=== PATIENT | female | born 1955 | race Caucasian/White ===

== ENCOUNTER 2019-05-10 21:00 | Inpatient (IN) | payer MEDICAID ==
[~2019-05-10] VITALS: Ht 160 cm; Wt 64.0 kg
[2019-05-10 21:39] VITALS: Ht 160 cm; Wt 64.0 kg
--- NOTE | 2019-05-10 21:46 | NUR ---
PATIENT AAOX4 BIB [facility] WITH C/O HBP, DIZZINESS, NAUSEA AND GENERAL MALAISE. PT IS VISITING FROM [place] AND WALKED AROUND [facility] BEFORE SYMPTOMS BEGAN. PT HAS EXTENSIVE CARDIC HX WITH HAVING AN SC, STENT PLACEMENT, AND HTN. PT BREATHING E/U, SKIN WARM DRY AND INTACT. 1+ EDEMA NOTED TO LLL, PT STS THIS IS A NEW SYMPTOM. PT PLACED ON ALL MONITORS FOR FURTHER OBSERVATION. WILL CONTINUE TO MONITOR.
--- NOTE | 2019-05-10 21:57 | NUR ---
MEDICATED PER MD ORDERS
[2019-05-10 22:16] LABS: BASOPHIL % 0.5 % (0-2); PLATELET COUNT 254 x10^3mcL (130-400)
[2019-05-10 22:18] LABS: RED CELL DISTRIBUTION WIDTH 15.1 % (11.5-14.5)
--- NOTE | 2019-05-10 22:40 | NUR ---
ASSISTED PATIENT TO BATHROOM TO PROVIDE URINE SAMPLE. GAIT UNSTEADY. PT BACK ON GURNEY AND PLACED BACK ON ALL MONITORS FOR FURTHER OBSERVATION. WILL CONTINUE TO MONITOR.
[2019-05-10 22:53] LABS: CALCIUM 8.8 mg/dL (8.5-10.1); CARBON DIOXIDE 28.3 mmol/L (21-32); CHLORIDE SERUM 107 mmol/L (98-107); CREATININE SERUM 0.9 mg/dL (0.6-1.0); GFR1 > 60 mL/min; GLUCOSE SERUM 164 mg/dL (74-106); POTASSIUM SERUM 4.1 mmol/L (3.5-5.1); SODIUM SERUM 143 mmol/L (136-145)
[2019-05-10 23:07] LABS: ALKALINE PHOSPHATASE 97 U/L (46-116); ALT/SGPT 37 U/L (14-59); AST/SGOT 29 U/L (15-37); BILIRUBIN TOTAL 0.18 mg/dL (0.20-1.00); FREE T4 0.94 ng/dL (0.76-1.46)
[2019-05-10 23:09] LABS: ALBUMIN 2.3 g/dL (3.4-5.0); TOTAL PROTEIN, SERUM 5.7 g/dL (6.4-8.2)
[2019-05-10 23:23] LABS: microscopic required? YES; urine erythrocyte 2+ (NEGATIVE)
--- NOTE | 2019-05-10 23:26 | NUR ---
PATIENT LYING ON GURNEY WITH EYES CLOSED. EASILY AROUSABLE. WILL CONTINUE TO MONITOR. VSS.
--- NOTE | 2019-05-10 23:52 | NUR ---
PT LAYING IN GURNEY WITH EYES CLOSED. GOOD CHEST RISE AND FALL NOTED. NAD.
--- NOTE | 2019-05-10 23:57 | NUR ---
DR SUN AT BEDSIDE TO REEVALUTE PT.
[2019-05-11] VITALS (7 sets, daily range): BP systolic 107–171; BP diastolic 46–90
--- NOTE | 2019-05-11 00:35 | NUR ---
MEDICATED PER MD ORDERS
[2019-05-11] MEDS ORDERED: ALIGN4 M1 PO (00:50)
[2019-05-11] MEDS ORDERED: CIPRO250 MG PO (00:50)
[2019-05-11] MEDS ORDERED: LIPITOR40 MG PO (00:51)
[2019-05-11] MEDS ORDERED: PLA75 PO (00:51)
[2019-05-11] MEDS ORDERED: IBUPROFEN400 MG PO (00:53)
[2019-05-11] MEDS ORDERED: NATURAL IRON65 MG PO (00:55)
[2019-05-11] MEDS ORDERED: LOSARTAN POTASS1 TA6 PO (00:56)
[2019-05-11] MEDS ORDERED: TOPROL XL25 MG PO (00:56)
[2019-05-11] MEDS ORDERED: TYMLOS1.56 ML SQ (00:57)
[2019-05-11] MEDS ORDERED: ASPIRIN ADULT L81 M5 PO (00:57)
[2019-05-11] MEDS ORDERED: NOVOLOG FLEX100 U/M1 SQ (00:58)
[2019-05-11] MEDS ORDERED: INTRINSI B12-F1 EACH (00:58)
[2019-05-11] MEDS ORDERED: LOVAZA1 G1 (00:58)
[2019-05-11] MEDS ORDERED: FENOFIBRATE145 M1 PO (00:59)
[2019-05-11] MEDS ORDERED: AMLODIPINE BESY10 M2 PO (00:59)
[2019-05-11] MEDS ORDERED: GABAPENTIN800 M1 PO (01:00)
[2019-05-11] MEDS ORDERED: ISOSORBIDE MONO60 MG PO (01:00)
[2019-05-11] MEDS ORDERED: METFORMIN HCL1000 MG PO (01:01)
[2019-05-11] MEDS ORDERED: MECLIZINE HYDRO25 M1 PO (01:01)
[2019-05-11] MEDS ORDERED: BRILINTA90 M1 PO (01:02)
[2019-05-11] MEDS ORDERED: TRESIBA FL100 UNIT/1 SQ (01:03)
[2019-05-11] MEDS ORDERED: VICTOZA 3-0.6 MG/0.1 SQ (01:03)
[2019-05-11] MEDS ORDERED: FLOVENT DI100 MCG/A1 INH (01:04)
[2019-05-11] MEDS ORDERED: ALPRAZOLAM0.25 MG PO (01:04)
[2019-05-11] MEDS ORDERED: TRAMADOL HCL50 MG PO (01:05)
[2019-05-11] MEDS ORDERED: EPZICOM1 TAB (01:05)
--- NOTE | 2019-05-11 01:18 | NUR ---
RECEIVED FROM ED.PUT IN ROOM 237 B AND MADE COMFORTABLE.TELE 22 ASSIGNED,SR.NO CHEST PAIN.WILL ADMIT PATIENT,SAYS SHE IS COLD,GIVEN WARM BLANKET.WANTING TO EAT,NO DIET ORDER YET,WILL CHECK WITH DR ARGUETA.CALL LIGHT IN REACH.
--- NOTE | 2019-05-11 02:09 | NUR ---
PATIENT ADMISSION HX AND ASSESSMENT DONE.PATIENT SPEAKS ARABIC WELL.MED HX OF DC,STENT,HTN,NEUROPATHY,FIBROMYALGIA,OSTEOPOROSIS,,UMB HERNIA.PATIENT SAYS SHE IS VISITING FROM [place],WENT TO [facility] WITH GRANDKIDS.PUSHING STROLLER,SAYS SHE HAS CANE AND WALKER AT HOME.ALLERGY CODEINE.ORIENTED TO ROOM,CALL LIGHT AND ETC.DX FROM ER UTI.SAYS SHE USE TO SMOKE,QUIT A LONG TIME AGO.MRSA SWAB DONE.JACOBO HAD URC FROM ED,UDS ADDED.LAC HEPLOCK INTACT.WANTED SANDWICH,GIVEN AFTER DR ARGUETA SAYS GIVE/OK.NO SKIN ALTERATION,TRACE EDEMA BOTH ANKLE.WILL FOLLOW UP ADMIT ORDER.WILL INITIATE PLAN OF CARE.CALL LIGHT IN REACH.
--- NOTE | 2019-05-11 02:16 | NUR ---
ED PHYSICIAN NOTED THAT SHE HAD RETINAL SURGERY IN [place] 3 DAYS AGO.BP IS ELEVATED IN ER.UTI,ATB WAS GIVEN BUT NONE FOR HTN,DR ARGUETA MADE AWARE.
[2019-05-11 02:22] LABS: MAGNESIUM 1.6 mg/dL (1.8-2.4); PHOSPHOROUS 4.3 mg/dL (2.5-4.9)
[2019-05-11 02:48] LABS: AMPHETAMINE QUAL UR NONE DETECTED (See below)
--- NOTE | 2019-05-11 04:45 | NUR ---
ALL INITIAL MEDS ORDERED INITIATED WITH NO INCIDENT.SWALLOWS WELL.MAG LEVEL LOW,WAS REPLACED,ATB LEVAQUIN ALSO GIVEN.CALL LITE IN REACH.
--- NOTE | 2019-05-11 05:59 | NUR ---
I AND O MEASURED.PATIENT HEPLOCK INTACT.WILL ENDORSE TO NEXT SHIFT.
[2019-05-11 06:32] LABS: BASOPHIL % 0.6 % (0-2); PLATELET COUNT 239 x10^3mcL (130-400)
[2019-05-11 07:07] LABS: CALCIUM 8.4 mg/dL (8.5-10.1); CARBON DIOXIDE 26.3 mmol/L (21-32); MAGNESIUM 2.4 mg/dL (1.8-2.4); POTASSIUM SERUM 4.1 mmol/L (3.5-5.1)
[2019-05-11 07:08] LABS: RED CELL DISTRIBUTION WIDTH 15.6 % (11.5-14.5)
--- NOTE | 2019-05-11 07:10 | NUR ---
PT RESTING IN BED W/ EYES CLOSED, VERBAL, LUXEMBOURGISH, DENIED PAIN/CP/PRESURE AT THIS TIME, DENIED N/V/D/DIZZINESS, AXOX4, PERRLA, NO REDNESS/DRAINAGE, LUNGS CTA, RESP EVEN AND NON-LABORED, TELE # 22, NSR, HR AT 69 AT THIS TIME, CHEST RISE SYMMETRICALLY, ABD ROUND AND NON-TENDER TO TOUCH, LAST BM 05/10/19, SOFT, CCHO DIET, CONTINENET, GEN. WEAKNESS, ABLE TO MOVE ALL EXTREMITIES, USED CANE AT HOME, SALINE LOCK TO LAC PATENT AND NO INFILTRATION NOTED, CAP REFILL < 2 SECS, PALP PULSES, ALL NEEDS MET AT THIS TIME, CALL LIGHT IN REACH, BED AT LOW POSITION, CONTINUE TO MONITOR
--- NOTE | 2019-05-11 07:35 | NUR ---
RECEIVED REPORT FROM BRITTANI NELSON, PT SLEEPING IN BEDF WITH NO APPARENT OF ACUTE RESP DISTRESS, IV PATENT TO SULLY NOBLE TO MONITOR
--- NOTE | 2019-05-11 09:07 | NUR ---
PT IN BED, IN NO ACUTE REPS DISTRESS, AM MED GIVEN PER MD LORRIE SWANSON EMAR, TAKEN WELL, NO ASE NTOED AT THIS TIME, QUESTIONS A/B MEDS AND ASE ASKED AND ANSWERED, NO FURTHER CONCERNS NEEDED AT THIS TIME, SAID WILL ASK FAMILY TO BRING HOME MEDS FOR REFERENCE, CONTINUE TO MONITOR
--- NOTE | 2019-05-11 11:26 | NUR ---
PT RESTING IN BED, ECHO DONE AT BEDSIDE, IN NO ACUTE RESP DISTRESS, WILL CONTINUE TO MONITOR
[2019-05-11] MEDS ORDERED: TIZANIDINE HCL2 MG PO (13:11)
[2019-05-11] MEDS ORDERED: PRILOSEC OTC20 M1 PO (13:12)
--- NOTE | 2019-05-11 13:35 | NUR ---
PT CONCERNED ABOUT HOME MED TRAMADOL 50MG TAB TID PRN AND REQUESTED TO HAVE IT DURING HOSPITALIZATION, DR. SILVERMAN PAGED AND CALLED BACK, [facility], PT AWARE, CONTINUE TO MONITOR
--- NOTE | 2019-05-11 18:05 | NUR ---
PT RESTING IN BED, IN NO ACUTE RESP DISTRES, VERBAL, AXOX4, CALM AND COOPERATIVE, ABLE TO MAKE NEEDS KNOWN, RESP EVEN AND NON-LABORED, CHEST RISE SYMMETRICALLY, ABLE TO MOVE ALL EXTREMITIES, AMBULATORY W/ ASSIST, CONTINENT, IV TO LAC PATENT AND NO INFILTRATION NOTED, DENIED PAIN/CP/PRESSURE, DENIED N/V/D/DIZZINESS, ALL NEEDS MET AT THIS TIME, SAFETY PROTOCOL FOLLOWED, WILL ENDORSE TO ONCOMING RN
--- NOTE | 2019-05-11 21:22 | NUR ---
PATIENT RECEIVED AWAKE, ALERT, ORIENTED X4 IN BED. RESPIRATION EVEN AND UNLABORED, ON ROOM AIR. SALINE LOCK TO LEFT ANTECUBITAL AREA PATENT AND INTACT. TRACE EDEMA TO BILATERAL ANKLE. LBM 05/10/2019. VOIDING FREELY WITHOUT DIFFICULTY. GENERALIZED WEAKNESS TO EXTREMITIES, USES CANE AND WALKER TO AMBULATE. SKIN DRY AND INTACT. LATEST BLOOD SUGAR 245 MG/DL, 6 UNITS REGULAR INSULIN SQ GIVEN PER RISS. DENIES PAIN AT THIS TIME. ON TELE #22. WILL CONTINUE TO MONITOR.
--- NOTE | 2019-05-12 05:56 | NUR ---
PATIENT RESTING IN BED. RESPIRATION EVEN AND UNLABORED. REQUESTED FOR O2, STATED "I'M WHEEZING, I CAN HEAR IT, I SLEEP WITH O2 ON." SALINE LOCK TO LEFT ANTECUBITAL AREA PATENT AND INTACT. WANTS TO SHOWER. EXPLAINED THAT WE NEED TO GET A DOCTORS ORDER. LATEST BLOOD SUGAR 217. REGULAR INSULIN 6 UNITS SQ GIVEN PER RISS. ASSISTED WITH NEEDS. SAFETY OBSERVED. ASSISTED WHEN AMBULATING. PLACED BED IN THE LOWEST POSITION. PLACED CALL LIGHT WITHIN REACH AT ALL TIMES.
[2019-05-12 05:59] VITALS: BP 135/60
[2019-05-12 06:46] LABS: CALCIUM 8.2 mg/dL (8.5-10.1); CARBON DIOXIDE 28.3 mmol/L (21-32); CHLORIDE SERUM 109 mmol/L (98-107); CREATININE SERUM 0.9 mg/dL (0.6-1.0); GFR1 > 60 mL/min; GLUCOSE SERUM 219 mg/dL (74-106); POTASSIUM SERUM 4.5 mmol/L (3.5-5.1); SODIUM SERUM 143 mmol/L (136-145)
[2019-05-12 07:00] LABS: BASOPHIL % 0.9 % (0-2); PLATELET COUNT 235 x10^3mcL (130-400)
[2019-05-12 07:33] LABS: RED CELL DISTRIBUTION WIDTH 14.9 % (11.5-14.5)
--- NOTE | 2019-05-12 07:33 | NUR ---
RECEIVED AWAKE, ALERT AND ORIENTED. IN NO RESP. DISTRESS. VS WNL. NO C/O PAIN OR DISCOMFORT AT THIS TIME. CALL LIGHT WITHIN REACH. WILL CONTINUE WITH PLAN OF CARE.
[2019-05-12 08:45] VITALS: BP 131/51
[2019-05-12 12:53] VITALS: BP 145/51
--- NOTE | 2019-05-12 14:06 | NUR ---
SITTING ON A BED IN NO DISTRESS. DENIES CHEST DISCOMFORT. VS WNL.
[2019-05-12 16:14] VITALS: BP 113/45
--- NOTE | 2019-05-12 18:41 | NUR ---
REMAINS IN NO DISTRESS, AWAKE AND ALERT. NO C/O PAIN OR DISCOMFORT AT THIS TIME. VS REMAINS WNL. HL PATENT. CALL LIGHT WITHIN REACH. WILL BE ENDORSED TO INCOMING SHIFT.
[2019-05-12 20:05] VITALS: BP 106/30
--- NOTE | 2019-05-12 20:11 | NUR ---
PATIENT RECEIVED AWAKE, ALERT, ORIENTED X4 SITTING ON THE SIDE OF THE BED READING THE BIBLE. RESPIRATION EVEN AND UNLABORED, ON ROOM AIR. SALINE LOCK TO THE LEFT ANTECUBITAL AREA PATENT AND INTACT. DENIES PAIN AT THIS TIME. TRACE EDEMA TO BILATERAL ANKLE. VOIDING FREELY IN THE BATHROOM. AMBULATES WITH ASSISTANCE, USES CANE/WALKER AT HOME. SKIN DRY AND INTACT. WILL CONTINUE TO MONITOR.
[2019-05-13 05:21] VITALS: BP 162/86
--- NOTE | 2019-05-13 06:21 | NUR ---
PATIENT RESTING IN BED. RESPIRATION EVEN AND UNLABORED, ON O2 2L PER NASAL CANNULA. DENIES PAIN AT THIS TIME. IV SITE NO SIGN OF INFILTRATION. ASSISTED WITH NEEDS. SAFETY OBSERVED. PLACED BED IN THE LOWEST POSITION. PLACED CALL LIGHT WITHIN REACH AT ALL TIMES.
[2019-05-13 07:22] LABS: CALCIUM 8.7 mg/dL (8.5-10.1); CARBON DIOXIDE 29.8 mmol/L (21-32); CHLORIDE SERUM 109 mmol/L (98-107); CREATININE SERUM 0.9 mg/dL (0.6-1.0); GFR1 > 60 mL/min; GLUCOSE SERUM 117 mg/dL (74-106); POTASSIUM SERUM 4.5 mmol/L (3.5-5.1); SODIUM SERUM 144 mmol/L (136-145)
[2019-05-13 07:29] LABS: BASOPHIL % 0.6 % (0-2); PLATELET COUNT 240 x10^3mcL (130-400)
[2019-05-13 07:36] LABS: RED CELL DISTRIBUTION WIDTH 15.4 % (11.5-14.5)
[2019-05-13 08:34] VITALS: BP 139/59
[2019-05-13] MEDS ORDERED: CIPROFLOXACIN500 MG PO (13:12)
[2019-05-13] MEDS ORDERED: CARVEDILOL6.25 M1 PO (13:22)
[2019-05-13 13:45] VITALS: BP 139/59
--- NOTE | 2019-05-13 15:18 | NUR ---
IV DC'D FROM LEFT AC WITH CATH INTACT, PT TOLERATED WELL, PT SIGNED DISCHARGE PAPERWORK.
== END 2019-05-13 16:20 | disposition home or self-care (01) | DRG 199 ==
LOC: ED 21:00 → MU 05-11 00:26 → DU 05-11 00:26 → MU 05-12 22:23
PROVIDERS: Emergency Medicine; Internal Medicine; ADMIT General Practice
DX: I16.0 Hypertensive urgency (principal); N17.0 Acute kidney failure with tubular necrosis; E43 Unspecified severe protein-calorie malnutrition; E11.65 Type 2 diabetes mellitus with hyperglycemia; N39.0 Urinary tract infection, site not specified; I25.10 Atherosclerotic heart disease of native coronary artery without angina pectoris; I10 Essential (primary) hypertension; D53.9 Nutritional anemia, unspecified; E83.42 Hypomagnesemia; M79.7 Fibromyalgia; Z79.4 Long term (current) use of insulin; Z79.82 Long term (current) use of aspirin; Z68.24 Body mass index [BMI] 24.0-24.9, adult; Z95.5 Presence of coronary angioplasty implant and graft; Z79.84 Long term (current) use of oral hypoglycemic drugs; Z79.1 Long term (current) use of non-steroidal anti-inflammatories (NSAID)
CPT/HCPCS: 82962; 84439; G0378; J0696; J1885; J1956; J2270; J3475; J7050; J7060; J8597; Q0092; Q0162